=== PATIENT | male | born 1965 | race Caucasian/White ===

== ENCOUNTER 2016-07-27 04:13 | Emergency (ER) | payer BC ==
[2016-07-27] MEDS ORDERED: MORPHINE SULFATE 10 MG/ML INJ IV ONE ×2 (05:10→06:26)
[2016-07-27] MEDS ORDERED: ONDANSETRON HCL INJ/PF 4 MG/2 ML SDV IV ONE (05:10)
[2016-07-27] MEDS ORDERED: LIDOCAINE 5% (700 MG) TRANSDERMAL ADH..PATCH TP ONE (05:10)
[2016-07-27 05:37] LABS: ABSOLUTE EOSINOPHILS # (AUTO) 0.4 10^3/uL (0.0-0.6); ABSOLUTE LYMPHOCYTES (AUTO) 2.3 10^3/uL (0.5-4.7); ABSOLUTE MONOCYTES (AUTO) 0.8 10^3/uL (0.1-1.4); BASOPHILS % (AUTO) 0.5 % (0-2); EOSINOPHILS % (AUTO) 3.8 % (0-6); HEMATOCRIT 36.8 % (37.9-51.0); HEMOGLOBIN 12.1 g/dL (13.5-17.0); HGB HCT DIFFERENCE -0.5; LYMPHOCYTES % (AUTO) 24.2 % (13-45); MEAN CORPUSCULAR HEMOGLOBIN 29.9 pg (27.0-33.4); MEAN CORPUSCULAR HGB CONC 32.8 g/dL (32.0-36.0); MEAN CORPUSCULAR VOLUME 91 fl (80-97); MONOCYTES % (AUTO) 8.4 % (3-13); RED BLOOD COUNT 4.04 10^6/uL (4.35-5.55); RED CELL DISTRIBUTION WIDTH 12.6 % (11.5-14.0); SEGMENTED NEUTROPHILS % (AUTO) 63.1 % (42-78); WHITE BLOOD COUNT 9.6 10^3/uL (4.0-10.5)
[2016-07-27 05:43] LABS: PROTHROMBIN TIME 12.5 SEC (11.4-15.4)
[2016-07-27 05:51] LABS: ALANINE AMINOTRANSFERASE 29 U/L (21-72); ALBUMIN 3.8 g/dL (3.5-5.0); ALKALINE PHOSPHATASE 77 U/L (38-126); ANION GAP 12 (5-19); ASPARTATE AMINO TRANSFERASE 24 U/L (17-59); BILIRUBIN,TOTAL 0.4 mg/dL (0.2-1.3); BLOOD UREA NITROGEN 30 mg/dL (7-20); CALCIUM 9.3 mg/dL (8.4-10.2); CARBON DIOXIDE 26 mmol/L (22-30); CHLORIDE 100 mmol/L (98-107); CREATINE KINASE 260 U/L (55-170); CREATININE RESULT 1.05 mg/dL (0.52-1.25); GLUCOSE 244 mg/dL (75-110); MAGNESIUM 2.2 mg/dL (1.6-2.3); POTASSIUM 4.9 mmol/L (3.6-5.0); TOTAL PROTEIN 6.2 g/dL (6.3-8.2)
[2016-07-27 06:03] LABS: CREATINE KINASE MB 2.94 ng/mL (<4.55)
[2016-07-27 06:06] LABS: TROPONIN I 0.04 ng/mL
--- NOTE | 2016-07-27 06:24 | ER Document Report ---
ED Extremity Problem, Lower - General Time seen by provider: 06:15 Mode of Arrival: Ambulatory Information source: Patient TRAVEL OUTSIDE OF THE [place] IN LAST 30 DAYS: No - HPI Patient complains to provider of: Pain Location: Leg, Thigh Occurred: Other - see HPI Onset/Duration: Gradual, Constant, Persistent Quality of pain: Achy, Cramping Pain Level: 4 Associated symptoms: Chest pain, Painful ambulation Exacerbated by: Movement Relieved by: Nothing <ASMMI HANCOCK - Last Filed: 07/27/16 07:09> <ANUP BUNDY - Last Filed: 07/27/16 07:48> - General Chief Complaint: Leg Pain Stated Complaint: LEFT LEG PAIN Notes: Patient is a 51 year old male with a cardiac history presenting to the emergency department with complaints of leg pain. Patient states his left leg is having some muscle spasms and cramping. Patient states that he developed these muscle spasms after taking simvastatin 4-5 years prior. Patient states his cramping/spasms occur if he does activities such as walking up hill; these spasms usually go away and do not last long. Patient was cleaning out his boat [place] and was going up and down a ladder frequently. Patient states that his pain and spasms in his right leg have subsided since then but his left leg is still having pain. Patient's left leg is very tender on the anterior thigh and to the calf. Patient also has a history of angina and states that it is triggered when he becomes "startled or scared." Patient states he woke up x2 this morning from his leg pain which then triggered his angina. Patient took nitroglycerin around 01:00 which relieved his angina. Patient came into the ED for his leg pain to be evaluated; his angina has not changed and is not new. Patient states he has taken Tylenol, Motrin, Aspirin, and Percocet to attempt to relieve his pain but has not had any relief. Patient takes metformin for his diabetes mellitus, is taking brilinta, and is also on medication for his hypertension and hyperlipidemia. Patient has a history of stents x6, CAD, and heart attacks x2. Patient has no allergies. (SAMMI HANCOCK) - Related Data Allergies/Adverse Reactions: No Known Allergies Allergy (Unverified 04/16/15 18:58) Past Medical History - General Information source: Patient, [facility] Records - Social History Smoking Status: Former Smoker Chew tobacco use (# tins/day): No Frequency of alcohol use: Rare Drug Abuse: None Family History: None Patient has suicidal ideation: No Patient has homicidal ideation: No - Past Medical History Cardiac Medical History: Reports: Hx Coronary Artery Disease, Hx Heart Attack - x2, Hx Hypercholesterolemia, Hx Hypertension Renal/ Medical History: Reports: Hx Kidney Stones - x3 Past Surgical History: Reports: Hx Cardiac Surgery - x6 stents - Immunizations Hx Diphtheria, Pertussis, Tetanus Vaccination: Yes <SAMMI HANCOCK - Last Filed: 07/27/16 07:09> Review of Systems - Review of Systems Constitutional: No symptoms reported EENT: No symptoms reported Cardiovascular: See HPI, Chest pain Respiratory: No symptoms reported Gastrointestinal: No symptoms reported Genitourinary: No symptoms reported Male Genitourinary: No symptoms reported Musculoskeletal: See HPI Skin: No symptoms reported Hematologic/Lymphatic: No symptoms reported Neurological/Psychological: See HPI, Headaches -: Yes All other systems reviewed and negative <SAMMI HANCOCK - Last Filed: 07/27/16 07:09> Physical Exam - Vital signs Interpretation: Normal - General General appearance: Appears well, Alert In distress: Mild - HEENT Head: Normocephalic, Atraumatic Eyes: Normal Pupils: PERRL Mucous membranes: Normal - Respiratory Respiratory status: No respiratory distress Chest status: Nontender Breath sounds: Normal Chest palpation: Normal - Cardiovascular Rhythm: Regular Heart sounds: Normal auscultation Murmur: No - Abdominal Inspection: Normal Distension: No distension Bowel sounds: Normal Tenderness: Nontender Organomegaly: No organomegaly - Back Back: Normal, Nontender - Extremities General upper extremity: Normal inspection, Normal ROM, Normal strength General lower extremity: Other - Left anterior thigh is tender and left posterior calf is very tender, neither are swollen or hard - Neurological Neuro grossly intact: Yes Cognition: Normal Orientation: AAOx4 Ena Coma Scale Eye Opening: Spontaneous [place] Coma Scale Verbal: Oriented [place] Coma Scale Motor: Obeys Commands [place] Coma Scale Total: 15 Speech: Normal Sensory: Normal - Psychological Associated symptoms: Normal affect, Normal mood - Skin Skin Temperature: Warm Skin Moisture: Dry <SAMMI HANCOCK - Last Filed: 07/27/16 07:09> Course - Laboratory Result Diagrams: 07/27/16 05:30 07/27/16 05:30 <SAMMI HANCOCK - Last Filed: 07/27/16 07:09> - Laboratory Result Diagrams: 07/27/16 05:30 07/27/16 05:30 <ANUP BUNDY - Last Filed: 07/27/16 07:48> - Vital Signs Vital signs: Temp Pulse Resp BP Pulse Ox 87 F L 87 13 102/59 L 96 07/27/16 04:21 07/27/16 04:21 07/27/16 06:47 07/27/16 07:00 07/27/16 07:01 (SAMMI HANCOCK) (ANUP BUNDY) - Laboratory Laboratory results interpreted by me: 07/27/16 07/27/16 07/27/16 05:30 05:30 05:30 RBC 4.04 L Hgb 12.1 L Hct 36.8 L BUN 30 H Glucose 244 H Hemoglobin A1c % 8.4 H Creatine Kinase 260 H Total Protein 6.2 L (SAMMI HANCOCK) (ANUP BUNDY) Discharge <SAMMI HANCOCK - Last Filed: 07/27/16 07:09> <ANUP BUNDY - Last Filed: 07/27/16 07:48> - Discharge Clinical Impression: Poorly controlled diabetes mellitus, Stable angina Thigh pain, musculoskeletal Qualifiers: Laterality: left Qualified Code(s): M79.605 - Pain in left leg Calf pain Qualifiers: Laterality: left Qualified Code(s): M79.662 - Pain in left lower leg Condition: Stable Disposition: HOME, SELF-CARE Additional Instructions: Your left anterior thigh and posterior leg pain seems to be coming from the muscles. There is no evidence of blood clots. There is no evidence of muscle cell breakdown. Your blood sugar levels are poorly controlled at this time. Take the medications as prescribed for pain and muscle spasm. Drink plenty of fluids throughout the day and evening. Elevate your feet as much as possible. Rest your leg muscles as much as possible. Limit any strenuous walking or climbing activity. Follow-up with your doctor this week for recheck and to review your medications. RETURN TO THE EMERGENCY ROOM IF ANY NEW OR WORSENING SYMPTOMS. Prescriptions: Cyclobenzaprine HCl [Flexeril 5 mg Tablet] 5 mg PO TID PRN #15 tablet PRN Reason: Oxycodone HCl/Acetaminophen [Percocet 5-325 mg Tablet] 1 - 2 tab PO ASDIR PRN # 15 tablet PRN Reason: Referrals: LALA SCOTT MD [Primary Care Provider] - Follow up in 3-5 days Scribe Attestation: 07/27/16 07:48 I personally performed the services described in the documentation, reviewed and edited the documentation which was dictated to the scribe in my presence, and it accurately records my words and actions. (ANUP BUNDY) Scribe Documentation <SAMMI HANCOCK - Last Filed: 07/27/16 07:09> <ANUP BUNDY - Last Filed: 07/27/16 07:48> - Scribe Written by Scribe:: ANUP BUNDY MD, SCRIBE 07/27/16 0743 Acting as scribe for: Dr. Bundy (SAMMI HANCOCK) (ANUP BUNDY)
[2016-07-27] MEDS ORDERED: KETOROLAC TROMETHAMINE INJ/PF 30 MG/1 ML SDV IV ONE (06:26)
[2016-07-27] MEDS ORDERED: METHOCARBAMOL INJ/PF 1000 MG/10 ML SDV IV ONE (06:26)
[2016-07-27] MEDS ORDERED: NORMAL SALINE 1000 ML 1,000 ML IV ONE (06:26)
[2016-07-27 08:01] VITALS: BP 116/72
--- NOTE | 2016-07-27 10:06 | EKG REPORT ---
SEVERITY:- NORMAL ECG - SINUS RHYTHM : Confirmed by: Juana Kenyon MD 27-Jul-2016 10:05:31
== END 2016-07-27 08:01 | disposition home or self-care (01) ==
LOC: ER 04:13
DX: M79.652 Pain in left thigh (principal); M79.662 Pain in left lower leg; M62.838 Other muscle spasm; E11.65 Type 2 diabetes mellitus with hyperglycemia; Z79.84 Long term (current) use of oral hypoglycemic drugs; I25.10 Atherosclerotic heart disease of native coronary artery without angina pectoris; I10 Essential (primary) hypertension; I25.2 Old myocardial infarction; R51 Headache; E78.5 Hyperlipidemia, unspecified; Z79.02 Long term (current) use of antithrombotics/antiplatelets; Z79.899 Other long term (current) drug therapy; Z98.61 Coronary angioplasty status
CPT/HCPCS: 93005; 96376; 99284; 96361; 96374; 96375; 36415; 82553; 82550; 83735; 85025; 85610; 80053; 84484; 83036; 85379; 71010; 93010; J2800; J1885; J2270; J2405; J7030

== ENCOUNTER 2016-07-30 21:14 | Emergency (ER) | payer BC ==
--- NOTE | 2016-07-30 21:37 | ER Document Report ---
ED Medical Screen (RME) - General Stated Complaint: LEFT LEG PAIN Mode of Arrival: Wheelchair Information source: Patient Notes: Patient presents to the emergency department with complaints of left leg pain. Recently diagnosed with a Moncada cyst. Reports Percocet is not helping with the pain. Doppler completed yesterday by Janalakshmi, he reports negative for DVT. He is here due to pain. Reports headache. Denies chest pain. I have greeted and performed a rapid initial assessment of this patient. A comprehensive ED assessment and evaluation of the patient, analysis of test results and completion of the medical decision making process will be conducted by additional ED providers. TRAVEL OUTSIDE OF THE [place] IN LAST 30 DAYS: No - Related Data Allergies/Adverse Reactions: No Known Allergies Allergy (Unverified 04/16/15 18:58) Past Medical History - Past Medical History Cardiac Medical History: Reports: Hx Coronary Artery Disease, Hx Heart Attack - x2, Hx Hypercholesterolemia, Hx Hypertension Renal/ Medical History: Reports: Hx Kidney Stones - x3. Denies: Hx Peritoneal Dialysis Past Surgical History: Reports: Hx Cardiac Surgery - x6 stents - Immunizations Hx Diphtheria, Pertussis, Tetanus Vaccination: Yes
[2016-07-31] MEDS ORDERED: DIAZEPAM INJ 10 MG/2 ML DISP.SYRIN IM ONE (01:45)
--- NOTE | 2016-07-31 01:46 | ER Document Report ---
ED Extremity Problem, Lower - General Chief Complaint: Leg Pain Stated Complaint: LEFT LEG PAIN Time seen by provider: 01:45 Mode of Arrival: Wheelchair Information source: Patient TRAVEL OUTSIDE OF THE [place] IN LAST 30 DAYS: No - HPI Patient complains to provider of: Pain Location: Leg Occurred: Other - 3-4 days Where: Home Onset/Duration: Gradual, Persistent Quality of pain: Achy, Cramping Severity: Moderate Pain Level: 4 Recent injury: Possibly Associated symptoms: Painful ambulation Exacerbated by: Movement, Walking Relieved by: Nothing Notes: Patient is a 51-year-old male presenting to the emergency room complaining of left lower leg pain that's been going on for the past 3-4 days, he states he overworked himself 3-4 days ago was having pain in this area after going up and down a ladder repeatedly, he reported to the emergency room and had a full workup at that point in time, was discharged with a prescription for Percocet and Flexeril which he states are doing nothing for his pain, he followed up with his primary care provider yesterday and had an outpatient lower extremity Doppler performed, patient reports there was no evidence of a DVT but it was noted that he had a Moncada cyst, he denies any specific injury, no numbness or tingling, no chest pain or shortness of breath - Related Data Allergies/Adverse Reactions: No Known Allergies Allergy (Unverified 04/16/15 18:58) Past Medical History - General Information source: Patient - Social History Smoking Status: Former Smoker Chew tobacco use (# tins/day): No Frequency of alcohol use: Rare Drug Abuse: None Family History: None Patient has suicidal ideation: No Patient has homicidal ideation: No - Past Medical History Cardiac Medical History: Reports: Hx Coronary Artery Disease, Hx Heart Attack - x2, Hx Hypercholesterolemia, Hx Hypertension Renal/ Medical History: Reports: Hx Kidney Stones - x3. Denies: Hx Peritoneal Dialysis Past Surgical History: Reports: Hx Cardiac Surgery - x6 stents - Immunizations Hx Diphtheria, Pertussis, Tetanus Vaccination: Yes Review of Systems - Review of Systems Constitutional: No symptoms reported EENT: No symptoms reported Cardiovascular: No symptoms reported Respiratory: No symptoms reported Gastrointestinal: No symptoms reported Genitourinary: No symptoms reported Male Genitourinary: No symptoms reported Musculoskeletal: See HPI Skin: No symptoms reported Hematologic/Lymphatic: No symptoms reported Neurological/Psychological: No symptoms reported -: Yes All other systems reviewed and negative Physical Exam - Vital signs Vitals: Temp Pulse Resp BP Pulse Ox 98 F 71 18 105/90 H 99 07/30/16 21:36 07/30/16 21:36 07/30/16 21:36 07/30/16 21:36 07/30/16 21:36 Interpretation: Normal - General General appearance: Appears well, Alert In distress: None - HEENT Head: Normocephalic, Atraumatic Eyes: Normal Extraocular movements intact: Yes Eyelashes: Normal Pupils: PERRL - Respiratory Respiratory status: No respiratory distress - Cardiovascular Rhythm: Regular - Abdominal Inspection: Normal - Back Back: Normal - Extremities General upper extremity: Normal inspection Calf: Tender - Tender to palpate left calf, no fullness, no swelling, no erythema, no change in temperature, distal sensation and motor is intact - Neurological Neuro grossly intact: Yes Cognition: Normal Orientation: AAOx4 Ena Coma Scale Eye Opening: Spontaneous Ena Coma Scale Verbal: Oriented Ena Coma Scale Motor: Obeys Commands Ena Coma Scale Total: 15 - Psychological Associated symptoms: Normal affect, Normal mood - Skin Skin Temperature: Warm Skin Moisture: Dry Skin Color: Normal Course - Re-evaluation Re-evalutation: 07/31/16 03:43 Patient reports feeling moderate relief after receiving IM valium, he was provided with 1 valium pill to take home for use later in the day, and a prescription for same, as well as a knee immobilizer and crutches, and information for follow-up with orthopedics, patient acknowledges understanding and agreement with this plan - Vital Signs Vital signs: Temp Pulse Resp BP Pulse Ox 97.7 F 67 17 138/60 H 95 07/31/16 02:31 07/31/16 02:31 07/31/16 02:31 07/31/16 02:31 07/31/16 02:31 Procedures - Immobilization Left Knee Time completed: 02:19 Pre-Proc Neuro Vasc Exam: Normal Immobilizer type: Knee immobilizer Performed by: RN Post-Proc Neuro Vasc Exam: Normal Alignment checked and good: Yes Discharge - Discharge Clinical Impression: Calf pain Qualifiers: Laterality: left Qualified Code(s): M79.662 - Pain in left lower leg Moncada's cyst of knee Qualifiers: Laterality: left Qualified Code(s): M71.22 - Synovial cyst of popliteal space [ Moncada], left knee Condition: Stable Disposition: HOME, SELF-CARE Instructions: Leg Pain Nonspecific ([facility]), Moncada's Cyst ([facility]) Additional Instructions: Follow up with your primary care provider and an orthopedic surgeon in one to 2 days. Return to the emergency room immediately if symptoms worsen or any additional concerns. Ice and elevate the affected extremity. Limit weightbearing. Prescriptions: Diazepam [Valium 5 mg Tablet] 5 mg PO QIDP PRN #15 tablet PRN Reason: Referrals: LINDA MENDIOLA DO [ACTIVE STAFF] - Follow up as needed
[2016-07-31] MEDS ORDERED: DIAZEPAM 5 MG TABLET PO ONE (02:21)
[2016-07-31 02:41] VITALS: BP 138/60
== END 2016-07-31 02:42 | disposition home or self-care (01) ==
LOC: ER 21:14
DX: M71.22 Synovial cyst of popliteal space [Baker], left knee (principal); I25.10 Atherosclerotic heart disease of native coronary artery without angina pectoris; I25.2 Old myocardial infarction; I10 Essential (primary) hypertension; Z98.61 Coronary angioplasty status; Z87.891 Personal history of nicotine dependence
CPT/HCPCS: 99283; 96372; L1830; J3360

== ENCOUNTER 2016-08-04 22:16 | Emergency (ER) | payer BC ==
[2016-08-04] MEDS ORDERED: MORPHINE SULFATE 10 MG/ML INJ IV ONE (23:00)
--- NOTE | 2016-08-04 23:06 | ER Document Report ---
ED General - General Stated Complaint: CHEST PAIN Notes: Patient's 51-year-old male presents with complaint of a few different complaints. First complaint is a small left leg. This is his third visit evaluation of this. He has a history of recurrent leg spasms. Week ago he was helping his clean out their boat. The next morning started having severe spasms in his leg. Her seen her twice. The second time was placed on volume which helped a spasms. He says he's been using crutches but has felt a pop in his leg since and is develop swelling down into his foot and leg which has worsened today. He did have a DVT ultrasound a few days ago which was negative. No fevers. No vomiting. No other injuries or complaints. Patient's second complaint is of chest pain. He does have a history of cardiac stents. Last cardiac catheter was this past March which showed that his stents were normal. Patient says she frequently does get angina whenever he is stressed out from other pain such as a pain in his leg. He did take nitroglycerin which has relieved his pain. He is currently chest pain- free. He says the chest pain he had today is not atypical for him. He is followed by cardiology at [facility]. Patient did have 325 mg of aspirin prior to coming to the ER. TRAVEL OUTSIDE OF THE [place] IN LAST 30 DAYS: No - Related Data Allergies/Adverse Reactions: No Known Allergies Allergy (Unverified 04/16/15 18:58) Past Medical History - Social History Smoking Status: Never Smoker Frequency of alcohol use: None Drug Abuse: None Family History: None - Past Medical History Cardiac Medical History: Reports: Hx Coronary Artery Disease, Hx Heart Attack - x2, Hx Hypercholesterolemia, Hx Hypertension Renal/ Medical History: Reports: Hx Kidney Stones - x3. Denies: Hx Peritoneal Dialysis Past Surgical History: Reports: Hx Cardiac Surgery - x6 stents - Immunizations Hx Diphtheria, Pertussis, Tetanus Vaccination: Yes Review of Systems - Review of Systems Notes: My Normal Review Basic REVIEW OF SYSTEMS: CONSTITUTIONAL : Denies fever, chills, or sweats. Denies recent illness. EENT: Denies eye, ear, throat, or mouth pain or symptoms. Denies nasal or sinus congestion. CARDIOVASCULAR: Chest pain RESPIRATORY: Denies cough, cold, or chest congestion. Denies shortness of breath, difficulty breathing, or wheezing. GASTROINTESTINAL: Denies abdominal pain. Denies nausea, vomiting, or diarrhea. Denies constipation. Last BM: MUSCULOSKELETAL: Left leg edema SKIN: Denies rash or skin lesions. NEUROLOGICAL: Denies altered mental status or loss of consciousness. Denies headache. Denies weakness or paralysis or loss of use of either side. Denies problems with gait or speech. Denies sensory or motor loss. ALL OTHER SYSTEMS REVIEWED AND NEGATIVE. Physical Exam - Vital signs Vitals: Resp Pulse Ox 18 97 08/04/16 22:40 08/04/16 22:40 - Notes Notes: General Appearance: Well nourished, alert, cooperative, no acute distress, moderate obvious discomfort. Vitals: reviewed, See vital signs table. Head: no swelling or tenderness to the head Eyes: PERRL, EOMI, Conjuctiva clear Mouth: No decreasd moisture Neck: Supple, no neck tenderness, No thyromegaly Lungs: No wheezing, No rales, No rhonci, No accessory muscle use, good air exchange bilaterally. Heart: Normal rate, Regular rythm, No murmur, no rub Abdomen: Normal BS, soft, No rigidity, No abdominal tenderness, No guarding, no rebound, no abdominal masses, no organomegaly Extremities: strength 5/5 in all extremities, good pulses in all extremities, pain to palpation over the left lower leg. His area of pinpoint pain where the Achilles tendon meets his gastric be missed muscle the posterior aspect of left calf muscle. He does have swelling into the foot and ankle. Capillary refills intact. Dorsalis pedis and posterior tibial pulses are intact. I did a bedside ultrasound of the calf and Achilles. The Achilles tendon is intact. Patient does have an linear hypodense area consistent with edema at the junction of the Achilles tendon the gastrocnemius muscle suggesting that there is a tear at this area., no edema. Skin: warm, dry, appropriate color, no rash Neuro: speech clear, oriented x 3, normal affect, responds appropriately to questions. Distal sensation intact in foot. Course - Re-evaluation Re-evalutation: 08/05/16 01:25 Patient continues to be chest pain-free. No impending continues complain about his left leg. Patient's made aware of his only chronic enzymes. I did call [facility] and am awaiting a call back from the print line inspector for possible transfer for NSTEMI. - Vital Signs Vital signs: Temp Pulse Resp BP Pulse Ox 20 134/74 H 99 08/05/16 05:01 08/05/16 05:01 08/05/16 05:01 - Laboratory Result Diagrams: 08/04/16 22:40 08/04/16 22:40 Laboratory results interpreted by me: 08/04/16 08/04/16 08/04/16 22:40 22:40 22:40 RBC 3.78 L Hgb 11.4 L Hct 34.1 L Seg Neutrophils % 79.7 H Lymphocytes % 7.4 L Sodium 136.9 L Carbon Dioxide 19 L BUN 29 H Glucose 192 H Creatine Kinase 259 H CK-MB (CK-2) 4.71 H - EKG Interpretation by Me Additional EKG results interpreted by me: 08/04/16 23:05 EKG is reviewed and interpreted by me. EKG shows sinus tachycardia with rate of [address] segment elevation or depression. Patient does have some T- wave inversions in leads 1 and aVL which are unchanged comparison to his previous EKG from 07/27/2016. - Transfer of Care Notes: 08/05/16 01:[address] Guerrero, print line inspector covering at [facility], she did inform me that she will be placed on a waiting list because the awaiting for best open up in the morning after discharges. I did talk to the patient and he does want to go to [facility] being that that is where his care has been in the past and that is where his records are. I think this is appropriate. We will continue to treat him with Lovenox every 12 hours and monitor him with repeat troponins until bed becomes available. As for the patient's leg pain, leg pain is most likely related to a small tear at the insertion of the gastrocnemius to the muscle. I did do a bedside ultrasound which did show hypodense area cyst with edema at the insertion site of the gastrocnemius muscle into the Achilles tendon. The remainder of the Achilles tendon appears intact. This sounds as if this injury occurred in relation to severe spasms that he was having his legs. I do not suspect DVT being that the patient had a negative duplex ultrasound of his lower extremity just a few Patient was placed in a splint. He needs to follow-up with orthopedics in one week for reevaluation. He is given crutches. 08/05/16 05:34 I did reevaluate the patient. He continues to 90 for the chest pain being that he does have Nitropaste on. The only pain he complains of is still some pain in his leg. He continues to be stable without any distress. Discharge - Discharge Clinical Impression: Leg pain, left Chest pain Qualifiers: Chest pain type: unspecified Qualified Code(s): R07.9 - Chest pain, unspecified Condition: Stable Disposition: [facility]
[2016-08-05 00:40] LABS: ABSOLUTE EOSINOPHILS # (AUTO) 0.1 10^3/uL (0.0-0.6); ABSOLUTE LYMPHOCYTES (AUTO) 0.7 10^3/uL (0.5-4.7); ABSOLUTE NEUT (AUTO) 7.4 10^3/uL (1.7-8.2); BASOPHILS % (AUTO) 0.5 % (0-2); EOSINOPHILS % (AUTO) 1.3 % (0-6); HEMATOCRIT 34.1 % (37.9-51.0); HEMOGLOBIN 11.4 g/dL (13.5-17.0); HGB HCT DIFFERENCE 0.1; LYMPHOCYTES % (AUTO) 7.4 % (13-45); MEAN CORPUSCULAR HEMOGLOBIN 30.2 pg (27.0-33.4); MEAN CORPUSCULAR HGB CONC 33.6 g/dL (32.0-36.0); MEAN CORPUSCULAR VOLUME 90 fl (80-97); MONOCYTES % (AUTO) 11.1 % (3-13); RED BLOOD COUNT 3.78 10^6/uL (4.35-5.55); SEGMENTED NEUTROPHILS % (AUTO) 79.7 % (42-78); WHITE BLOOD COUNT 9.2 10^3/uL (4.0-10.5)
[2016-08-05 00:44] LABS: ALANINE AMINOTRANSFERASE 30 U/L (21-72); ALKALINE PHOSPHATASE 75 U/L (38-126); ANION GAP 14 (5-19); ASPARTATE AMINO TRANSFERASE 36 U/L (17-59); BILIRUBIN,TOTAL 0.6 mg/dL (0.2-1.3); BLOOD UREA NITROGEN 29 mg/dL (7-20); CALCIUM 9.5 mg/dL (8.4-10.2); CARBON DIOXIDE 19 mmol/L (22-30); CHLORIDE 104 mmol/L (98-107); CREATINE KINASE 259 U/L (55-170); CREATININE RESULT 1.01 mg/dL (0.52-1.25); GLUCOSE 192 mg/dL (75-110); POTASSIUM 4.7 mmol/L (3.6-5.0); SODIUM 136.9 mmol/L (137-145); TOTAL PROTEIN 6.7 g/dL (6.3-8.2)
[2016-08-05 00:56] LABS: CREATINE KINASE MB 4.71 ng/mL (<4.55)
[2016-08-05 00:59] LABS: TROPONIN I 0.549 ng/mL
[2016-08-05] MEDS ORDERED: NITROGLYCERIN 2% OINTMENT 1 GM PACKET TP ONE (01:13)
[2016-08-05] MEDS ORDERED: ASPIRIN 325 MG TABLET PO ONE (01:14)
[2016-08-05] MEDS ORDERED: FENTANYL CITRATE INJ/PF 100 MCG/2 ML AMPUL IV ONE ×2 (01:17→03:56)
[2016-08-05] MEDS ORDERED: ENOXAPARIN SODIUM INJ 80 MG/0.8 ML DISP.SYRIN SUBCUT SCH ×2 (01:30→10:00)
[2016-08-05] MEDS ORDERED: ENOXAPARIN SODIUM INJ 80 MG/0.8 ML DISP.SYRIN SUBCUT ONE (02:30)
[2016-08-05] MEDS ORDERED: HYDROCODONE/ACETAMINOPHEN 5-325 MG TABLET PO ONE (09:01)
[2016-08-05] MEDS ORDERED: METFORMIN HCL 500 MG TABLET PO SCH (10:00)
[2016-08-05] MEDS ORDERED: TICAGRELOR 90 MG TABLET PO SCH (10:00)
[2016-08-05] MEDS ORDERED: ASPIRIN 325 MG TABLET PO SCH (10:00)
[2016-08-05] MEDS ORDERED: RANOLAZINE 500 MG TAB.SR.12H PO SCH (10:00)
[2016-08-05] MEDS ORDERED: METOPROLOL SUCCINATE 25 MG TAB.SR.24H PO SCH (10:00)
--- NOTE | 2016-08-05 11:44 | EKG REPORT ---
SEVERITY:- ABNORMAL ECG - SINUS TACHYCARDIA ABNORMAL T, CONSIDER ISCHEMIA, LATERAL LEADS BORDERLINE PROLONGED QT INTERVAL : Confirmed by: Juana Kenyon MD 05-Aug-2016 11:44:02
[2016-08-05] MEDS ORDERED: OXYCODONE-ACETAMINOPHEN 5-325 MG TABLET PO ONE (13:38)
[2016-08-05 14:58] VITALS: BP 133/73
== END 2016-08-05 14:58 | disposition short-term general hospital (02) ==
LOC: ER 22:16
DX: M79.605 Pain in left leg (principal); R07.9 Chest pain, unspecified; I25.10 Atherosclerotic heart disease of native coronary artery without angina pectoris; E78.00 Pure hypercholesterolemia, unspecified; I10 Essential (primary) hypertension; I25.2 Old myocardial infarction; Z87.442 Personal history of urinary calculi
CPT/HCPCS: 93005; 99285; 96372; 96374; 36415; 82553; 82962; 82550; 85025; 80053; 84484; 71010; 93010; J3010; J2270; J1650; J3490

== ENCOUNTER 2017-07-23 02:59 | Outpatient (CLI) | payer OTHER | END 2017-07-23 08:12 | disposition E | LOC: OROUT 02:59 | DX: Z52.9 Donor of unspecified organ or tissue (principal) ==